=== PATIENT | male | born 1980 ===

== ENCOUNTER 2022-05-17 13:55 | Emergency (ER) | payer SELFPAY ==
[2022-05-17 14:30] VITALS: BP 95/54; PULSE 75; RESP 19; TEMP 97.8; BMI 21.9
== END 2022-05-17 18:58 | disposition home or self-care (01) ==
LOC: FER 13:55
DX: F10.90 Alcohol use, unspecified, uncomplicated (principal); F12.90 Cannabis use, unspecified, uncomplicated
CPT/HCPCS: 82962; 99283-25